=== PATIENT | female | born 1995 ===

== ENCOUNTER 2016-08-15 11:27 | Emergency (ER) | payer BC, OTHER ==
[~2016-08-15] VITALS: Ht 152.4 cm; Wt 63.0 kg
[2016-08-15 11:38] VITALS: TEMP 36.6; Ht 152.4 cm; Wt 63.0 kg
[2016-08-15] MEDS ORDERED: IUD'IUD (11:46)
--- NOTE | 2016-08-15 15:39 | EMERGENCY ROOM VISIT NOTE ---
History First contact with patient: 11:46 Chief Complaint: LACERATION/CUT (SUT/DERMABOND) Stated Complaint: CUT THUMB Nursing Triage Summary: laceration to right thumb pt working at [employer] with chickens infected with ZiKA pt changing scalpel and cut self with dirty instrument History of Present Illness The patient is a 21 year old female who presents to the Emergency Room via private vehicle accompanied by colleagues with complaints of "cut thumb". 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 The scalpel had recently been used on a chicken that was inoculated with a live ZIKA virus 10 days prior. Chicken was at the time of contact. She points to her right thumb, specifically the distal aspect as a location of the laceration. There was minimal bleeding. She denies any numbness or tingling in this region. She rates her overall pain as a 2/10. Her tetanus is up-to-date. She denies any chance of . Review of Systems A complete 10-point Review of Systems was discussed with the patient, with pertinent positives and negatives listed in the History of Present Illness. All remaining Review of Systems questions can be considered negative unless otherwise specified. Past Medical/Surgical History Tonsillectomy, wisdom teeth extraction. Family History Diabetes Social History Smoking Status: Unknown if Ever Smoked Social History: Patient lives at home with parents. 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 Patient is afebrile , normotensive, non-tachycardic and is saturating well on room air 100%. GENERAL -21-year-old female appearing her stated age who is in no acute distress. Communicates well with provider and answers questions appropriately. SKIN - Without rashes. The skin overlying the distal right thumb is intact. There is a small superficial laceration with dried blood. EXTREMITIES - No clubbing or peripheral cyanosis. No pretibial edema present. She is neurovascularly intact left upper extremity. +5/5 strength noted in UE/ LE bilaterally. Medical Decision & Procedures Laboratory Results Test 08/15/16 12:41 08/15/16 15:50 Urine Test NEG (NEG) Medical Decision Patient was seen and evaluated as above. After obtaining a thorough history and physical examination it was evident the patient had sustained a superficial laceration, however there is concern that her blood has mixed with blood from a chicken that had been inoculated 10 days prior with a live ZIKA a virus. 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 The wound was cleansed and temporarily dressed. I then made several phone calls to the [facility] and State Department regarding this injury. I first called the [facility], and was directed through a series of individuals and finally made to an individual that is believed to be higher up in the [facility], who recommended that I call the State Department. He did recommend that the patient abstains from sexual activity for 8 weeks, or uses protection. She was found to be test negative on urine. He did recommend testing but notes that the State Department would provide further guidance. I then called the State Department, and spoke with an individual who stated that all of the clinical physicians who answer questions were not in. I was then directed to another phone number. I then talked with another series of individuals via phone calls, and was eventually redirected back to where it first started. I was then called back by Val Kline, a specialist with this virus in the [facility]. She provided great direction regarding patient management. She recommended that the patient be tested today for the cecal virus, but not the molecular level meaning no PCR testing was needed. She then asked for the patient's phone number so that which she could contact them for follow-up and further testing. I do believe this is reasonable. The patient wound was then thoroughly cleansed. At this time it does not appear that it needs any type of closure. It was cleansed with Betadine and normal saline. It was then dressed with a bacitracin dressing and suture bandage. The patient then had blood drawn for the virus testing. She is to follow-up when called by Val Kline or return sooner if developes symptoms of ZIKA virus infection of which she is well versed upon or signs of infection from the finger. Her tetanus is up-to-date. The patient this time does appear to be stable for discharge. The case was also discussed with my attending. I did provide the patient with the contact number for Val Kline drawn if she did not hear back from her in a few days. The phone number is [phone]. The patient was educated upon worrisome symptoms which to return, had questions or discharge, and discharged home in good condition. In evaluation treatment this patient following differential diagnoses were entertained: Zika virus infection, laceration, among others. Impression Primary Impression: Laceration Additional Impression: Potenial exposure to ZIKA Virus Departure Information Dispostion Home / Self-Care Condition GOOD Referrals [facility] (PCP) Patient Instructions My [facility] Additional Instructions Discharge Instructions: You have the emergency Department for a laceration and potential exposure to ZIKA virus. Proper wound care is essential for adequate wound healing and infection prevention. You can shower and clean the wound with soap and water. Do not scour over the wound, pat dry with a towel. Do not submerse the wound (i.e. bathe or dish wash) until the wound fully heals in 3-4 days. You can use an antibiotic ointment with a dressing over the wound for the next 3-4 days. After this time you may leave the wound dry and open to the air. If crust develops over the wound you can use a Q-tip to apply a 1:1 peroxide:water solution to clean the wound. Look for signs of infection of the wound including: increased pain, swelling, foul discharge, streaking, or increased temperature. If any of these are noticed you should return to the Emergency Department for further assessment and treatment. As with any laceration you may have received nerve damage to the surrounding tissues. This damage may or may not be permanent. You should keep the area covered with sunscreen for the first 6 months to 1 year when at risk for exposure to help minimize scarring. You can also use scar reducing creams or Vitamin E oil to help minimize scarring. For pain control, you can use the following nyiy-yob-frajghj medicines (if >12 yo): - Regular strength (325mg/tab) Tylenol (acetaminophen) 2 tabs every 4-6 hours as needed. Do not exceed 12 tablets in a 24 hour period. Avoid taking more than 3 grams (3000 mg) of Tylenol per day. This includes any other sources of acetaminophen you may take on a regular basis. - Regular strength (200 mg/tab) Advil (ibuprofen) 1-2 tabs every 4-6 hours as needed. Do not exceed a dose of 3200 mg per day. Return to the emergency department if your symptoms worsen despite treatment course outlined above. ZIKA VIRUS: Please refrain from sexual activity, or use protection for the next 8 weeks. Your test was negative.. It is recommended that you use insect repellent for the next 3 weeks to help protect from sleep. We have discussed you're case with various health Department individuals. Val Kline, specifically, we have spoken with the [facility]. She recommends specific testing today. She will be contacting you. If you do not hear from her within the next few days please contact her at: [phone] Please watch for symptoms of the virus as we discussed. if these develop please call that number. Please return to the emergency department with any new/concerning symptoms. Thank you for and sorry about your wait time. Problem Qualifiers
[2016-08-15 16:24] VITALS: BP 120/85; PULSE 61; O2SAT 99
== END 2016-08-15 16:25 | disposition home or self-care (01) ==
LOC: C.EDB 11:34 → C.EDD 16:25
DX: S61.011A Laceration without foreign body of right thumb without damage to nail, initial encounter (principal); W45.8XXA Other foreign body or object entering through skin, initial encounter; Z20.828 Contact with and (suspected) exposure to other viral communicable diseases; Z98.890 Other specified postprocedural states; Z83.3 Family history of diabetes mellitus